=== PATIENT | male | born 1945 | race Caucasian/White ===

== ENCOUNTER 2025-05-02 18:06 | Emergency (ER) | payer OTHER, SELFPAY ==
[2025-05-02 18:17] VITALS: BP 153/90
[2025-05-02 18:54] LABS: Hematocrit 45.2 % (39.0-52.0); Hemoglobin 15.9 g/dL (13.0-18.0); Mean Corp Hgb Conc. 35.2 g/dL (33.0-37.0); Mean Corpuscular Volume 87.1 fL (80.0-94.0); Nucleated Red Blood Cells % 0 % (-); Platelet Count 197 10^3/uL (130-400); Red Cell Dist. Width 12.7 % (11.5-14.5)
[2025-05-02 19:16] LABS: Troponin I < 0.012 ng/ml
[2025-05-02 19:18] LABS: ALT (SGPT) 23 U/L (0-50); AST (SGOT) 23 U/L (17-59); Albumin 4.5 g/dl (3.5-5.0); Alkaline Phosphatase 89 U/L (38-126); Blood Urea Nitrogen 19 mg/dl (9-20); Calcium 9.3 mg/dl (8.4-10.2); Carbon Dioxide 27 mmol/L (22-30); Chloride 101 mmol/L (98-107); Glucose 136 mg/dl (70-99); Potassium 4.2 mmol/L (3.5-5.1); Sodium 135 mmol/L (135-145); Total Protein 7.0 g/dl (6.3-8.2); eGFR > 60.00
[2025-05-02 21:05] VITALS: BP 137/91
[2025-05-02 21:28] VITALS: BMI 34.5
[2025-05-02 22:00] VITALS: BP 134/113
--- NOTE | 2025-05-02 22:07 | ED.GENMED ---
History of Present Illness
General
Chief Complaint: Chest Pain
Source: patient
Exam Limitations: none
Time Seen by Provider: 05/02/25 21:54
History of Present Illness
History of Present Illness:
See MDM
Past History
Past History
ED Past Medical History: CAD and HTN
ED Past Surgical History: Cardiac
Social History
Tobacco: Former smoker
Alcohol: None
Phy Exam
Physical Exam
Physical Exam:
See MDM
Scores
Heart Score for Chest Pain Patients
STEMI patient?: No
History: Slightly or Non-Suspicious
ECG: Nonspecific Repolarization
Age: >/= 65 years
Risk Factors: 1 or 2 Risk Factors
Troponin: </= Normal Limit
Heart Score for Chest Pain Patients: 4
Heart Score Risk: 20.3% MACE over next 6 weeks
Course
Orders/Labs/Results
Orders:
Orders
05/02/25 18:08
ECG [Electrocardiogram (*1)] Urgent
Reason for Study: Chest Pain
05/02/25 18:09
EKG- Treatment ONCE
05/02/25 18:21
Cardiac Monitoring- Treatment ONCE
IV Insert/Care/Rem.- Treatment PRN
O2 Therapy [RESP] Urgent
Titrate/Wean O2 to maintain O2 sat greater than (%): 90
Special Instructions: Maintain sats >/=90%
Pulse Ox/spot Check [RESP] Urgent
Quantity: 1
Special Instructions: ON ROOM AIR
05/02/25 18:44
Complete Blood Count/With Diff Urgent
Comprehensive Metabolic Panel Urgent
Troponin I Urgent
05/02/25 22:06
CT Chest PE Study Urgent
Comment:
Reason For Exam: sob, left chest pain
diazePAM [Valium Injection] 5 mg IV NOW STA
Abnormal Lab Results
05/02/25
18:44
Absolute Monos (auto) 0.8 H 10^3/uL
(0.1-0.6)
Lymphocytes % 17.7 L %
(20.5-51.1)
Monocytes % 9.7 H %
(1.7-9.3)
Glucose 136 H mg/dl
(70-99)
Total Bilirubin 1.9 H mg/dl
(0.2-1.3)
05/02/25 18:44
05/02/25 18:44
Vital Signs
Initial and Last Documented VS:
Initial Vital Signs
Temp Pulse Resp BP Pulse Ox
98.7 F 97 20 153/90 95
05/02/25 18:17 05/02/25 18:17 05/02/25 18:17 05/02/25 18:17 05/02/25 18:17
Last Documented Vital Signs
Temp Pulse Resp BP Pulse Ox
98.7 F 94 27 134/113 94
05/02/25 18:17 05/02/25 22:30 05/02/25 22:30 05/02/25 22:00 05/02/25 22:30
MDM/Problems Addressed
Differential Diagnosis Includes:
Note:
CHIEF COMPLAINT(S)
Chest pressure.
HISTORY OF PRESENT ILLNESS
The patient is a 79-year-old male with a history of paroxysmal atrial fibrillation. He presents with chest pressure. He describes the duration of the symptom as brief and has not had any associated symptoms such as shortness of breath or leg pain
and swelling. The patient reports previous episodes of atrial fibrillation that were addressed with EKGs, which typically did not show concerning findings. He notes being active and engaging in yard work and follows closely with his electrical and radio mechanic.
The patient was recently on a 5-hour flight to and from [email or web address] last week. His primary care provider sent him to the emergency department for evaluation, suspecting a possible blood clot, but the patient asserts he is currently only taking aspirin and
metoprolol. He is not on anticoagulants but discussed having this conversation with his PCP and cardiolgist.
PAST MEDICAL AND SURGICAL HISTORY
Atrial fibrillation.
SOCIAL DETERMINANTS AFFECTING HEALTH
The patient mentions traveling recently, indicating potential logistical considerations for follow-up care.
PHYSICAL EXAM
General: Alert, no acute distress.
Skin: Warm, dry.
Head: Normocephalic, atraumatic
Neck: Appears supple, trachea midline.
Eyes, Ears, Nose, Mouth, and Throat: Moist mucous membranes
Cardiovascular: No signs of cyanosis. Irregular rhythm
Respiratory: Respirations are non-labored. Lungs clear
Abdomen: Non-distended
Musculoskeletal: No deformities. No leg edema or tenderness
Neurological: No focal neurological deficit observed.
Psychiatric: Cooperative, appropriate mood and affect.
ELECTROCARDIOGRAM (EKG)
My independent EKG interpretation is atrial fibrillation with no ischemic changes noted, indicating no current myocardial infarction.
DIFFERENTIAL DIAGNOSIS
The Differential Diagnosis includes, in no particular order and is not limited to:
- Pulmonary embolism
- Myocardial ischemia
- Stable angina
- Atrial fibrillation
- Atrial flutter
- Anxiety-related chest pain
- Pericarditis
- Pleuritis
- Gastroesophageal reflux disease (GERD)
- Musculoskeletal chest pain
SUMMARY OF ENCOUNTER
The patient was seen in the emergency department for evaluation of chest pressure potentially related to atrial fibrillation or a possible blood clot following recent air travel. Given his atrial fibrillation history and current symptoms, evaluation
was necessary to exclude acute causes such as pulmonary embolism or myocardial ischemia.
DISPOSITION
Discharge.
PLAN
- Obtain a CT scan to rule out pulmonary embolism.
- Administration of Xanax (alprazolam) to manage anxiety during imaging procedures.
- Reassurance of patient pending results and discharge planned if imaging and further blood work show no acute pathology.
INDEPENDENT REVIEW OF LABS AND INTERPRETATION OF TESTS
- My independent interpretation of blood work indicates no evidence of cardiac stress or acute myocardial ischemia.
PATIENT EDUCATION AND COUNSELING
The patient was counseled regarding the potential risks of atrial fibrillation, including stroke, and the importance of following up with his electrical and radio mechanic. Further discussion on the utility of anticoagulation or alternatives like the Watchman
procedure was encouraged.
MEDICATION RECONCILIATION
- Prescribed Xanax (alprazolam) for anxiety prior to the CT scan.
MEDICAL DECISION MAKING
- Number and Complexity of Problems Addressed:
Chronic conditions affecting care include atrial fibrillation.
- Data:
Category 1:
CT scan ordered to evaluate for pulmonary embolism.
Blood work reviewed, which was unremarkable for acute cardiac stress.
Category 2:
Discussion of potential need for anticoagulation to be continued with the patients electrical and radio mechanic.
Category 3:
Reassurance provided to the patient, pending results of CT scan and further evaluation.
-Risk:
Consideration of Admission/Observation: Escalation of care including admission/observation was considered given the complexity and risk of the patients presenting complaint, exam findings, and/or their underlying comorbidities. However, ultimately,
I feel the patient is safe for outpatient management with close follow-up. Reasoning: Work-up reassuring, does not reveal any acute life/organ threatening processes, patients symptoms well controlled upon reevaluation, reexamination is reassuring,
vitals are stable, patient agreeable with discharge, reliable for follow-up.
DIAGNOSIS
- Atrial Fibrillation (I48.91)
- Chest Pain (R07.9)
SUMMARY OF ENCOUNTER
The patient, a 79-year-old male with a history of atrial fibrillation, presented to the emergency department with concerns of chest pressure. He recently traveled by air, prompting his primary care provider to consider the risk of a blood clot. In
the emergency department, a CT scan was performed to rule out pulmonary embolism, which showed no evidence of such. The duration of his symptoms and unremarkable blood tests indicated a low suspicion for acute coronary syndrome. The patient remained
relatively symptom-free during the observation period and expressed comfort with returning home.
DISPOSITION
Discharge.
ASSESSMENT
The patient presented with chest pressure possibly related to atrial fibrillation, with an evaluated concern for pulmonary embolism post-air travel. No acute coronary syndrome was suspected given normal testing.
PLAN
- Reassurance was provided to the patient regarding low likelihood of acute pathology based on imaging and laboratory evaluation.
- Patient was advised to follow up closely with his primary care provider and electrical and radio mechanic regarding his atrial fibrillation and any future anticoagulation therapy considerations.
INDEPENDENT REVIEW OF LABS AND INTERPRETATION OF TESTS
- My independent review of blood work indicates no evidence of cardiac stress or acute myocardial ischemia.
- My independent interpretation of the CT scan is that there is no evidence of pulmonary embolism.
PATIENT EDUCATION AND COUNSELING
The patient was informed about the potential risks associated with atrial fibrillation, including stroke. He was encouraged to maintain regular follow-ups with his electrical and radio mechanic to discuss the potential utility of anticoagulation or alternatives like
the Watchman procedure.
FOLLOW-UP INSTRUCTIONS
Please call the office immediately to schedule a follow-up visit with your primary care provider and electrical and radio mechanic.
MEDICATION RECONCILIATION
- Prescribed alprazolam for anxiety prior to the CT scan.
MEDICAL DECISION MAKING
- Number and Complexity of Problems Addressed: Chronic conditions affecting care include atrial fibrillation, chest pressure potentially due to anxiety or stable angina. The differential diagnosis also considered pulmonary embolism, myocardial
ischemia, pericarditis, anxiety-related chest pain.
- Data:
Category 1: Testing included the CT scan ordered to rule out pulmonary embolism, and blood work reviewed, which was unremarkable for acute cardiac stress.
Category 2: My independent interpretation of the CT scan indicated no evidence of pulmonary embolism.
- Risk: Consideration of Admission/Observation: Escalation of care including admission/observation was considered given the complexity and risk of the patients presenting complaint, exam findings, and/or underlying comorbidities. However,
ultimately, I feel the patient is safe for outpatient management with close follow-up. Reasoning: Work-up reassuring, does not reveal any acute life/organ-threatening processes, patients symptoms well-controlled upon reevaluation, reexamination is
reassuring, vitals are stable, patient agreeable with discharge, reliable for follow-up.
DIAGNOSIS
- Atrial Fibrillation (I48.91)
- Chest Pain (R07.9)
*Pulse Oximetry
SaO2: 96
Oxygen Mode of Delivery: Room air
Patient hypoxic: no
*EKG
Interpretation: abnormal (Atrial fibrillation at 87 bpm, left axis, no ST elevation)
*Critical Care Note
Total Time (30-74mins, 75-104mins- exclusive of procedures): Not Applicable
ED Attending Note
-
Portions of this chart may have been created with voice recognition software.� Occasional wrong word or��sound alike� substitutions may have occurred due to the inherent limitations of voice recognition software.
Discharge Plan
Departure
Patient Disposition: Home (Routine Discharge)
Date of Disposition: 05/02/25
Time of Disposition: 23:42
Patient with high blood pressure during this ER visit?: No
Discharge Problem:
Chest pain
Instructions: Chest Pain PCP Follow Up
Prescriptions:
No Action
clopidogrel 75 mg Tablet
75 mg PO DAILY
aspirin 81 mg Tablet,Delayed Release (Dr/Ec)
81 mg PO DAILY
tramadol 50 mg Tablet
50 mg PO Q6H PRN (Reason: pain)
pantoprazole 40 mg Tablet,Delayed Release (Dr/Ec)
40 mg PO DAILY
Rx Instructions:
Before breakfast!
fluoxetine 10 mg Capsule
10 mg PO DAILY
nitroglycerin 0.4 mg Tablet, Sublingual
0.4 mg SUBLINGUAL Q5-15M PRN (Reason: chest pain)
metoprolol succinate 25 mg Tablet Extended Release 24 Hr
25 mg PO DAILY
colchicine 0.6 mg Tablet
0.6 mg PO BID
Rx Instructions:
Every 12 hours!
apixaban 5 mg Tablet
5 mg PO BID
Rx Instructions:
Every 12 hours!
Referrals:
Melecio Best DO [Family Provider, Family Practice]
Activity Restrictions/Additional Instructions:
Please return for any worsening symptoms.
You may return at any time if you have further concerns.
Please follow up with your doctor at the first available appointment, preferably this week.
Thank you for choosing [facility].
Interventions
Interventions:
*General Assessment Last Done: 05/02/25 18:17
*Neglect/Abuse Screening Last Done: 05/02/25 18:17
*ED COVID-19 Vaccine History Last Done: 05/02/25 21:28
*ED Influenza Vaccine History Last Done: 05/02/25 21:28
[facility] Risk Assessment Tool Last Done: 05/02/25 21:28
*Risk Screen - Suicide (C-SSRS) Last Done: 05/02/25 18:17
*Nursing Disposition Last Done: 05/02/25 23:55
ED- Cardiac Assessment Last Done: 05/02/25 21:29
Discharge Date and Time
Discharge Date/Time: 05/02/25 23:55
Print Language: FAROESE
[2025-05-02] MEDS: VALIUM INJECTION 5 MG IV (22:14)
== END 2025-05-02 23:55 | disposition home or self-care (01) ==
LOC: EMR 18:06
PROVIDERS: Emergency Medicine; EMERGENCY PHYSICIAN Student in an Organized Health Care Education/Training Program; FAMILY PHYSICIAN Family Medicine
DX: R07.89 Other chest pain (principal); I25.10 Atherosclerotic heart disease of native coronary artery without angina pectoris; I10 Essential (primary) hypertension; I48.0 Paroxysmal atrial fibrillation; Z87.891 Personal history of nicotine dependence
CPT/HCPCS: 99284; 96374; 71275; 80053; 84484; 85025; 93005; Q9967